=== PATIENT | female | born 1965 | race Caucasian/White ===

== ENCOUNTER → 2016-11-25 | Outpatient (CLI) | payer SELFPAY ==
[~2016-11-25] MED LIST: ADVAIR 500/501 DISK IH; AUGMENTIN875 MG PO; BENTYL20 MG PO; BUSPIRONE HCL10 MG PO; CYMBALTA60 MG PO; DIFLUCAN150 MG PO; KEFLEX500 MG PO; LIOTHYRONINE S25 MCG PO; LIPITOR40 MG PO; NORCO 5/3251 TABLET PO; SERTRALINE HCL100 MG PO; SYNTHROID137 MCG PO; TRAZODONE HCL100 MG PO; ULTRAM50 MG PO; VALACYCLOVIR1000 MG PO; XANAX1 MG PO; ZESTORETIC 20-1 EAC1 NG
== END | disposition home or self-care (01) ==
LOC: RAD 12:52
DX: R94.39 Abnormal result of other cardiovascular function study (principal)
CPT/HCPCS: 93880

== ENCOUNTER → 2017-05-09 | Outpatient (CLI) | payer SELFPAY | END | disposition home or self-care (01) | LOC: MRI 12:57 → RAD 13:30 → MRI 13:30 | DX: M62.422 Contracture of muscle, left upper arm (principal) | CPT/HCPCS: 70553 ==